=== PATIENT | male | born 1930 | race Caucasian/White ===

== ENCOUNTER 2017-06-04 15:20 | Inpatient (IN) | payer MEDICARE, OTHER, MEDICAID ==
[2017-06-04] MEDS: Dextrose 5%-0.45% NaCl 1,000 ML IV SCH (16:52)
[2017-06-04] MEDS ORDERED: Carboxymethylcellulose Sodium 0.5% Ophth Soln 15 ML Bottle EYEBOTH PRN (17:12)
[2017-06-04] MEDS ORDERED: Acetaminophen 500 MG Tab PO PRN (17:12)
[2017-06-04] MEDS: Ferrous Sulfate 325 MG Tab PO SCH (19:13)
[2017-06-04] MEDS: metFORMIN 500 MG Tab PO SCH (19:13)
[2017-06-04] MEDS: Acetaminophen 500 MG Tab PO SCH (20:52)
[2017-06-04] MEDS: Donepezil 10 MG Tab PO SCH (20:52)
[2017-06-04] MEDS: Tamsulosin 0.4 MG Cap.ER PO SCH (20:52)
[2017-06-04] MEDS: QUEtiapine 100 MG Tab PO SCH (20:54)
[2017-06-05] MEDS: Dextrose 5%-0.45% NaCl 1,000 ML IV SCH (06:12)
[2017-06-05] MEDS: Ferrous Sulfate 325 MG Tab PO SCH (08:04)
[2017-06-05] MEDS: metFORMIN 500 MG Tab PO SCH (08:04)
[2017-06-05] MEDS: Acetaminophen 500 MG Tab PO SCH ×2 (09:00→20:46)
[2017-06-05] MEDS: QUEtiapine 25 MG Tab PO SCH (09:00)
[2017-06-05] MEDS ORDERED: Tamsulosin 0.4 MG Cap.ER PO SCH (09:00)
[2017-06-05] MEDS: Aspirin 81 MG Tab.EC PO SCH (09:00)
[2017-06-05] MEDS ORDERED: Memantine 10 MG Tab PO SCH (09:00)
[2017-06-05] MEDS: Docusate Sodium 100 MG Cap PO SCH (09:00)
[2017-06-05] MEDS: Ascorbic Acid 500 MG Tab PO SCH (09:01)
--- NOTE | 2017-06-05 09:27 | PCM.PN ---
- General Info Date of Service: 06/05/17 Subjective Update: Mr. Hoyt reports no complaints this morning. Admits that he has not been drinking much lately. No other recent changes. No nursing concerns. - Review of Systems General: Denies: Fever Pulmonary: Denies: Shortness of Breath, Cough Cardiovascular: Denies: Chest Pain Gastrointestinal: Denies: Abdominal Pain, Difficulty Swallowing, Nausea, Vomiting Genitourinary: Denies: Dysuria Neurological: Denies: Headache - Patient Data Vitals - Most Recent: Last Vital Signs Temp 36.1 C 06/05/17 06:51 Pulse 63 06/05/17 06:51 Resp 16 06/05/17 06:51 BP 117/64 06/05/17 06:51 Pulse Ox 98 06/05/17 06:51 Weight - Most Recent: 77.593 kg I&O - Last 24 Hours: Intake & Output 06/04/17 06/05/17 06/05/17 22:59 06:59 14:59 Intake Total 170 977 Balance 170 977 Lab Results Last 24 Hours: Laboratory Results - last 24 hr 06/04/17 06/05/17 06/05/17 Range/Units 17:48 06:47 07:05 WBC 5.6 (5.0-10.0) 10^3/uL RBC 2.72 L (4.50-6.00) 10^6/uL Hgb 8.2 L (13.0-17.0) g/dL Hct 25.8 L (40.0-52.0) % MCV 94.8 H (82.0-92.0) fL MCH 30.1 (27.0-31.0) pg MCHC 31.7 L (32.0-36.0) g/dL RDW 12.4 (11.5-14.5) % Plt Count 237 (150-300) 10^3/uL MPV 7.4 (7.4-10.4) fL Neut % (Auto) 62.7 (50.0-70.0) % Lymph % (Auto) 18.5 L (20.0-40.0) % [place] % (Auto) 11.5 H (2.0-8.0) % Eos % (Auto) 6.5 H (1.0-3.0) % Baso % (Auto) 0.8 (0.0-1.0) % Neut # (Auto) 3.6 (2.5-7.0) 10^3/uL Lymph # (Auto) 1.0 (1.0-4.0) 10^3/uL [place] # (Auto) 0.6 (0.1-0.8) 10^3/uL Eos # (Auto) 0.4 H (0.1-0.3) 10^3/uL Baso # (Auto) 0.0 (0.0-0.1) 10^3/uL Sodium (136-145) mmol/L Potassium (3.3-5.3) mmol/L Chloride (98-115) mmol/L Carbon Dioxide (21.0-32.0) mmol/L BUN (6-25) mg/dL Creatinine (0.51-1.17) mg/dL Est Cr Clr Drug Dosing mL/min Estimated GFR (MDRD) mL/min Glucose (70-110) mg/dL POC Glucose 154 H 131 H (74-106) mg/dl Calcium (8.7-10.3) mg/dL Total Bilirubin (0.2-1.0) mg/dL AST (15-37) U/L ALT (12-78) U/L Alkaline Phosphatase (46-116) IU/L Total Protein (6.4-8.2) g/dL Albumin (3.00-4.80) g/dL 06/05/17 Range/Units 07:05 WBC (5.0-10.0) 10^3/uL RBC (4.50-6.00) 10^6/uL Hgb (13.0-17.0) g/dL Hct (40.0-52.0) % MCV (82.0-92.0) fL MCH (27.0-31.0) pg MCHC (32.0-36.0) g/dL RDW (11.5-14.5) % Plt Count (150-300) 10^3/uL MPV (7.4-10.4) fL Neut % (Auto) (50.0-70.0) % Lymph % (Auto) (20.0-40.0) % [place] % (Auto) (2.0-8.0) % Eos % (Auto) (1.0-3.0) % Baso % (Auto) (0.0-1.0) % Neut # (Auto) (2.5-7.0) 10^3/uL Lymph # (Auto) (1.0-4.0) 10^3/uL [place] # (Auto) (0.1-0.8) 10^3/uL Eos # (Auto) (0.1-0.3) 10^3/uL Baso # (Auto) (0.0-0.1) 10^3/uL Sodium 138 (136-145) mmol/L Potassium 4.8 (3.3-5.3) mmol/L Chloride 102 (98-115) mmol/L Carbon Dioxide 26.2 (21.0-32.0) mmol/L BUN 92 H* (6-25) mg/dL Creatinine 3.17 H (0.51-1.17) mg/dL Est Cr Clr Drug Dosing 14.82 mL/min Estimated GFR (MDRD) 19 mL/min Glucose 130 H (70-110) mg/dL POC Glucose (74-106) mg/dl Calcium 8.9 (8.7-10.3) mg/dL Total Bilirubin 0.3 (0.2-1.0) mg/dL AST 9 L (15-37) U/L ALT 17 (12-78) U/L Alkaline Phosphatase 107 (46-116) IU/L Total Protein 6.4 (6.4-8.2) g/dL Albumin 3.26 (3.00-4.80) g/dL Med Orders - Current: Current Medications Acetaminophen (Tylenol Extra Strength) 500 mg PO BID [facility] Last Admin: 06/05/17 09:00 Dose: 500 mg Acetaminophen (Tylenol Extra Strength) 500 mg PO Q6H PRN PRN Reason: Pain Artificial Tears (Refresh Tears 0.5%) 0 ml EYEBOTH TID PRN PRN Reason: Dry Eyes Ascorbic Acid (Vitamin C) 500 mg PO DAILY [facility] Last Admin: 06/05/17 09:01 Dose: 500 mg Aspirin (Halfprin) 81 mg PO DAILY [facility] Last Admin: 06/05/17 09:00 Dose: 81 mg Docusate Sodium (Colace) 100 mg PO DAILY [facility] Last Admin: 06/05/17 09:00 Dose: 100 mg Donepezil HCl (Aricept) 10 mg PO BEDTIME [facility] Last Admin: 06/04/17 20:52 Dose: 10 mg Ferrous Sulfate (Ferrous Sulfate) 325 mg PO BIDMEALS [facility] Last Admin: 06/05/17 08:04 Dose: 325 mg Dextrose/Sodium Chloride (Dextrose 5%-1/2 Ns) 1,000 mls @ 75 mls/hr IV ASDIRECTED [facility] Last Admin: 06/05/17 06:12 Dose: 75 mls/hr Quetiapine Fumarate (Seroquel) 25 mg PO DAILY [facility] Last Admin: 06/05/17 09:00 Dose: 25 mg Quetiapine Fumarate (Seroquel) 150 mg PO BEDTIME [facility] Last Admin: 06/04/17 20:54 Dose: 150 mg Tamsulosin HCl (Flomax) 0.4 mg PO BEDTIME [facility] Last Admin: 06/04/17 20:52 Dose: 0.4 mg Discontinued Medications Memantine (Namenda) 10 mg PO BID [facility] Metformin HCl (Glucophage) 500 mg PO BIDMEALS [facility] Last Admin: 06/05/17 08:04 Dose: 500 mg Omeprazole (Omeprazole) 20 mg PO Q48H [facility] Tamsulosin HCl (Flomax) 0.4 mg PO PCBREAKFAST [facility] - Exam Physical Findings Comments:: GENERAL: Well-appearing elderly white male sitting in bedside chair in no acute distress. HEENT: Normocephalic, atraumatic. Conjunctiva clear,. Nares patent without discharge. Tympanic membranes clear. Mucous membranes mildly dry. NECK: Supple, no masses. CV: Regular rate and rhythm, 1/6 systolic murmur at base without radiation, no rubs or gallops. 2+ radial pulses. PULMONARY: Normal effort, clear to auscultation bilaterally, no wheezes, rales, or rhonchi. ABDOMEN: Positive bowel sounds, soft, nontender, nondistended. EXTREMITIES: No edema, cyanosis, or clubbing. MUSCULOSKELETAL: Moves all extremities well. NEUROLOGICAL: No obvious deficits. DERMATOLOGIC: No rashes or suspicious lesions in exposed areas. PSYCHIATRIC: Alert, interactive, answers questions appropriately. - Problem List Review Problem List Initiated/Reviewed/Updated: Yes - My Orders Last 24 Hours: My Active Orders 06/05/17 09:11 IRON PNL (FE, TIBC, DYAN, %SAT) [REF] Routine 06/05/17 09:12 PROTEIN/CREATININE RATIO URINE Routine 06/06/17 05:11 BASIC METABOLIC PANEL,BMP [CHEM] AM CBC W/O DIFF,HEMOGRAM [HEME] AM - Assessment Assessment:: Mr. Hoyt is an 87yoM with a history notable for vascular dementia for which he is in SNF, HTN with recent hypotension, well-controlled DMT2, and hx prostate cancer admitted 06/04/17 from clinic for acute kidney injury. Hospitalization problems: # Acute kidney injury: Likely due to poor intake and over diuresis on furosemide. UA not collected yet, so will obtain this today along with Uprot:Cr to further assess for etiology. Creatinine without much change at 3.17 today ( 3.04 on admission), but ongoing normal electrolytes. He has had only mild improvement in fluid status having only received 900cc IVF since admission, so will change IVF to NS at 125cc/hr and encourage po intake while monitoring I/O. Will also discontinue other renal-toxic medications which may be playing a role , including metformin, omeprazole, and memantine (of note, started about 5 months ago). Recheck metabolic panel in the morning. If lack of improvement and Uprot:Cr not consistent with pre-renal etiology, consider renal bladder ultrasound next week. # HTN, with recent hypotension: Improvement in BPs and no orthostatic symptoms now that furosemide discontinued and IVF initiation. Continue monitoring. Chronic conditions: # Vascular dementia with behavioral disturbance: Stable. Discontinued memantine given renal-toxic effects; Consider reinitiation when renal function improves. Continue donepezil, quetiapine, and ASA. Ordered melatonin 3mg qHS for delirium prevention while in the hospital. # DMT2: A1c 6.5%. Previously on metformin 850mg BID, which was now discontinued. given renal-toxic effects. Continue BG checks BID. At discharge, recommend metformin 500mg once daily for mortality risk reduction but not further BG lowering given low A1c with goal of 8% given age. # Anemia: Stable at baseline 8-9. Etiology not clear, but favors occult loss ( he has previously declined GI work-up) vs. anemia of chronic disease. Recent B12 and folate normal. No recent iron panel, so ordered. Recheck CBC tomorrow. Continue iron supplementation. # GERD: Stable. Discontinued PPI given renal-toxic effects and recommend initiating H2B in the future if recurrent sx of GERD. # Hx prostate CA: Stable. Continue tamsulosin. Hospitalization details: # FEN: NS @ 125cc/hr. Electrolytes normal. Regular diet. # PPX: Moderate risk for DVT: Heparin 5000un q12h. # Code status: DNR. # Emergency contact: noemi Griffin/BOGDAN. # Disposition: Continue on inpatient. Anticipate discharge back to [facility] following improved in acute conditions.
[2017-06-05] MEDS: Sodium Chloride 0.9% 1,000 ML IV SCH ×2 (10:35→18:39)
[2017-06-05] MEDS: Heparin Sodium 5,000 Units/ML Vial SUBCUT SCH ×2 (11:47→20:46)
[2017-06-05] MEDS: Carboxymethylcellulose Sodium 0.5% Ophth Soln 15 ML Bottle EYEBOTH SCH ×2 (13:57→20:47)
[2017-06-05] MEDS: Donepezil 10 MG Tab PO SCH (20:46)
[2017-06-05] MEDS: Melatonin 3 MG Tab PO SCH (20:46)
[2017-06-05] MEDS: Tamsulosin 0.4 MG Cap.ER PO SCH (20:46)
[2017-06-05] MEDS: QUEtiapine 100 MG Tab PO SCH (20:47)
[2017-06-06] MEDS: Sodium Chloride 0.9% 1,000 ML IV SCH ×3 (02:40→18:42)
[2017-06-06] MEDS ORDERED: Omeprazole 20 MG Cap.CR PO SCH (07:00)
[2017-06-06] MEDS: Aspirin 81 MG Tab.EC PO SCH (08:40)
[2017-06-06] MEDS: Heparin Sodium 5,000 Units/ML Vial SUBCUT SCH ×2 (08:40→20:25)
[2017-06-06] MEDS: Ferrous Sulfate 325 MG Tab PO SCH (08:40)
[2017-06-06] MEDS: Docusate Sodium 100 MG Cap PO SCH (08:40)
[2017-06-06] MEDS: Acetaminophen 500 MG Tab PO SCH ×2 (08:41→20:26)
[2017-06-06] MEDS: Carboxymethylcellulose Sodium 0.5% Ophth Soln 15 ML Bottle EYEBOTH SCH ×3 (08:41→20:26)
[2017-06-06] MEDS: QUEtiapine 25 MG Tab PO SCH (08:41)
[2017-06-06] MEDS: Ascorbic Acid 500 MG Tab PO SCH (08:42)
--- NOTE | 2017-06-06 12:29 | PCM.PN ---
- General Info Date of Service: 06/06/17 Subjective Update: Patient reports that he feels this condition is improving. He has been attempting to increase his fluids. He states that he has had a relatively restful night. He does report that he woke up during the night sporadically and did feel somewhat restless. - Review of Systems General: Denies: Fever Pulmonary: Denies: Shortness of Breath, Cough Cardiovascular: Denies: Chest Pain, Palpitations Gastrointestinal: Denies: Abdominal Pain, Constipation, Nausea, Vomiting Genitourinary: Denies: Frequency, Urgency - Patient Data Vitals - Most Recent: Last Vital Signs Temp 97.3 F 06/06/17 05:41 Pulse 68 06/06/17 05:41 Resp 18 06/06/17 05:41 BP 153/72 H 06/06/17 05:41 Pulse Ox 97 06/06/17 05:41 Weight - Most Recent: 172 lb 9.6 oz I&O - Last 24 Hours: Intake & Output 06/05/17 06/06/17 06/06/17 22:59 06:59 14:59 Intake Total 1404 1197 Output Total 450 Balance 1404 747 Lab Results Last 24 Hours: Laboratory Results - last 24 hr 06/05/17 06/05/17 06/05/17 Range/Units 07:05 09:24 18:18 WBC (5.0-10.0) 10^3/uL RBC (4.50-6.00) 10^6/uL Hgb (13.0-17.0) g/dL Hct (40.0-52.0) % MCV (82.0-92.0) fL MCH (27.0-31.0) pg MCHC (32.0-36.0) g/dL RDW (11.5-14.5) % Plt Count (150-300) 10^3/uL MPV (7.4-10.4) fL Sodium (136-145) mmol/L Potassium (3.3-5.3) mmol/L Chloride (98-115) mmol/L Carbon Dioxide (21.0-32.0) mmol/L BUN (6-25) mg/dL Creatinine (0.51-1.17) mg/dL Est Cr Clr Drug Dosing mL/min Estimated GFR (MDRD) mL/min Glucose (70-110) mg/dL POC Glucose 152 H (74-106) mg/dl Calcium (8.7-10.3) mg/dL Iron 77 (50-150) ug/dL TIBC 272 (261-478) ug/dL Unsaturated IBC 195 (155-355) ug/dL Transferrin % Sat 28.3 (20.0-50.0) % Ferritin 95 (24-336) ng/mL Urine Protein 9 (1-14) mg/dL Urine Creatinine 73 mg/dL Protein/Creat Ratio 24h 123 (0-149) mg/g 06/06/17 06/06/17 Range/Units 07:04 07:04 WBC 4.2 L (5.0-10.0) 10^3/uL RBC 2.85 L (4.50-6.00) 10^6/uL Hgb 8.3 L (13.0-17.0) g/dL Hct 27.1 L (40.0-52.0) % MCV 95.2 H (82.0-92.0) fL MCH 29.0 (27.0-31.0) pg MCHC 30.5 L (32.0-36.0) g/dL RDW 12.3 (11.5-14.5) % Plt Count 234 (150-300) 10^3/uL MPV 7.4 (7.4-10.4) fL Sodium 143 (136-145) mmol/L Potassium 4.9 (3.3-5.3) mmol/L Chloride 109 (98-115) mmol/L Carbon Dioxide 24.4 (21.0-32.0) mmol/L BUN 66 H* (6-25) mg/dL Creatinine 2.02 H (0.51-1.17) mg/dL Est Cr Clr Drug Dosing 23.25 mL/min Estimated GFR (MDRD) 31 mL/min Glucose 114 H (70-110) mg/dL POC Glucose (74-106) mg/dl Calcium 9.1 (8.7-10.3) mg/dL Iron (50-150) ug/dL TIBC (261-478) ug/dL Unsaturated IBC (155-355) ug/dL Transferrin % Sat (20.0-50.0) % Ferritin (24-336) ng/mL Urine Protein (1-14) mg/dL Urine Creatinine mg/dL Protein/Creat Ratio 24h (0-149) mg/g Med Orders - Current: Current Medications Acetaminophen (Tylenol Extra Strength) 500 mg PO BID [facility] Last Admin: 06/06/17 08:41 Dose: 500 mg Acetaminophen (Tylenol Extra Strength) 500 mg PO Q6H PRN PRN Reason: Pain Artificial Tears (Refresh Tears 0.5%) 0 ml EYEBOTH TID [facility] Last Admin: 06/06/17 08:41 Dose: 1 drop Ascorbic Acid (Vitamin C) 500 mg PO DAILY [facility] Last Admin: 06/06/17 08:42 Dose: 500 mg Aspirin (Halfprin) 81 mg PO DAILY [facility] Last Admin: 06/06/17 08:40 Dose: 81 mg Docusate Sodium (Colace) 100 mg PO DAILY [facility] Last Admin: 06/06/17 08:40 Dose: 100 mg Donepezil HCl (Aricept) 10 mg PO BEDTIME [facility] Last Admin: 06/05/17 20:46 Dose: 10 mg Ferrous Sulfate (Ferrous Sulfate) 325 mg PO WITHBREAKFAST [facility] Last Admin: 06/06/17 08:40 Dose: 325 mg Heparin Sodium (Porcine) (Heparin Sodium) 5,000 units SUBCUT BID [facility] Last Admin: 06/06/17 08:40 Dose: 5,000 units Sodium Chloride (Normal Saline) 1,000 mls @ 125 mls/hr IV ASDIRECTED [facility] Last Admin: 06/06/17 10:29 Dose: 125 mls/hr Melatonin (Melatonin) 3 mg PO BEDTIME [facility] Last Admin: 06/05/17 20:46 Dose: 3 mg Quetiapine Fumarate (Seroquel) 25 mg PO DAILY [facility] Last Admin: 06/06/17 08:41 Dose: 25 mg Quetiapine Fumarate (Seroquel) 150 mg PO BEDTIME [facility] Last Admin: 06/05/17 20:47 Dose: 150 mg Tamsulosin HCl (Flomax) 0.4 mg PO BEDTIME [facility] Last Admin: 06/05/17 20:46 Dose: 0.4 mg Discontinued Medications Artificial Tears (Refresh Tears 0.5%) 0 ml EYEBOTH TID PRN PRN Reason: Dry Eyes Ferrous Sulfate (Ferrous Sulfate) 325 mg PO BIDMEALS [facility] Last Admin: 06/05/17 08:04 Dose: 325 mg Dextrose/Sodium Chloride (Dextrose 5%-1/2 Ns) 1,000 mls @ 75 mls/hr IV ASDIRECTED [facility] Last Admin: 06/05/17 06:12 Dose: 75 mls/hr Memantine (Namenda) 10 mg PO BID [facility] Last Admin: 06/05/17 10:00 Dose: Not Given Metformin HCl (Glucophage) 500 mg PO BIDMEALS [facility] Last Admin: 06/05/17 08:04 Dose: 500 mg Omeprazole (Omeprazole) 20 mg PO Q48H [facility] Tamsulosin HCl (Flomax) 0.4 mg PO PCBREAKFAST [facility] - Exam General: Alert, Cooperative, No Acute Distress Lungs: Clear to Auscultation, Normal Respiratory Effort. No: Rales, Rhonchi, Wheezing Cardiovascular: Regular Rate, Murmurs (Systolic murmur) GI/Abdominal Exam: Normal Bowel Sounds, Soft, Non-Tender Extremities: Normal Inspection, Non-Tender, No Pedal Edema Skin: Warm, Dry - Problem List Review Problem List Initiated/Reviewed/Updated: Yes - Assessment Assessment:: Mr. Hoyt is an 87yoM with a history notable for vascular dementia for which he is in SNF, HTN with recent hypotension, well-controlled DMT2, and hx prostate cancer admitted 06/04/17 from clinic for acute kidney injury. Hospitalization problems: # Acute kidney injury: Likely due to poor intake and over diuresis on furosemide. Cr to further assess. Creatinine change at 2.02 today (3.04 on admission), but ongoing normal electrolytes. IV at 125cc/hr and encourage po intake while monitoring I/O. Discontinued other renal-toxic medications which may be playing a role, including metformin, omeprazole, and memantine (of note, started about 5 months ago). Recheck metabolic panel in the morning. # HTN, with recent hypotension: Improvement in BPs and no orthostatic symptoms now that furosemide discontinued and IVF initiation. Continue monitoring. Chronic conditions: # Vascular dementia with behavioral disturbance: Stable. Discontinued memantine given renal-toxic effects; Consider reinitiation when renal function improves. Continue donepezil, quetiapine, and ASA. Ordered melatonin 3mg qHS for delirium prevention while in the hospital. # DMT2: A1c 6.5%. Previously on metformin 850mg BID, which was now discontinued. given renal-toxic effects. Continue BG checks BID. At discharge, recommend metformin 500mg once daily for mortality risk reduction but not further BG lowering given low A1c with goal of 8% given age. # Anemia: Stable at baseline 8-9. Etiology not clear, but favors occult loss ( he has previously declined GI work-up) vs. anemia of chronic disease. Recent B12 and folate normal. No recent iron panel, so ordered. Recheck CBC tomorrow. Continue iron supplementation. # GERD: Stable. Discontinued PPI given renal-toxic effects and recommend initiating H2B in the future if recurrent sx of GERD. # Hx prostate CA: Stable. Continue tamsulosin. Hospitalization details: # FEN: NS @ 125cc/hr. Electrolytes normal. Regular diet. # PPX: Moderate risk for DVT: Heparin 5000un q12h. # Code status: DNR. # Emergency contact: noemi Griffin/BOGDAN. # Disposition: Continue on inpatient. Anticipate discharge back to [facility] following improved in acute conditions.
[2017-06-06] MEDS: Melatonin 3 MG Tab PO SCH (20:25)
[2017-06-06] MEDS: QUEtiapine 100 MG Tab PO SCH (20:25)
[2017-06-06] MEDS: Tamsulosin 0.4 MG Cap.ER PO SCH (20:26)
[2017-06-06] MEDS: Donepezil 10 MG Tab PO SCH (20:26)
[2017-06-07] MEDS: Sodium Chloride 0.9% 1,000 ML IV SCH (02:45)
[2017-06-07] MEDS: Heparin Sodium 5,000 Units/ML Vial SUBCUT SCH ×2 (09:10→21:03)
[2017-06-07] MEDS: Carboxymethylcellulose Sodium 0.5% Ophth Soln 15 ML Bottle EYEBOTH SCH ×3 (09:15→21:03)
[2017-06-07] MEDS: Acetaminophen 500 MG Tab PO SCH ×2 (09:16→21:03)
[2017-06-07] MEDS: Ferrous Sulfate 325 MG Tab PO SCH (09:16)
[2017-06-07] MEDS: Ascorbic Acid 500 MG Tab PO SCH (09:16)
[2017-06-07] MEDS: Aspirin 81 MG Tab.EC PO SCH (09:16)
[2017-06-07] MEDS: QUEtiapine 25 MG Tab PO SCH (09:16)
[2017-06-07] MEDS: Docusate Sodium 100 MG Cap PO SCH (09:16)
--- NOTE | 2017-06-07 10:45 | PCM.PN ---
- General Info Date of Service: 06/07/17 Subjective Update: Patient reports a restful night. Attempts to increase oral fluids but needs encouragement. - Review of Systems General: Denies: Fever, Fatigue HEENT: Denies: Dysphasia, Ear Pain, Headaches, Sore Throat Pulmonary: Denies: Shortness of Breath, Cough Cardiovascular: Denies: Chest Pain, Palpitations Gastrointestinal: Denies: Abdominal Pain, Constipation, Diarrhea Genitourinary: Reports: Incontinence (large frequent voids) Skin: Denies: Dryness, Rash - Patient Data Vitals - Most Recent: Last Vital Signs Temp 98.5 F 06/07/17 06:39 Pulse 68 06/07/17 06:39 Resp 20 06/07/17 06:39 BP 155/80 H 06/07/17 06:39 Pulse Ox 95 06/07/17 06:39 Weight - Most Recent: 177 lb 3 oz I&O - Last 24 Hours: Intake & Output 06/06/17 06/07/17 06/07/17 22:59 06:59 14:59 Intake Total 250 1837 Output Total 80 200 Balance 170 1637 Lab Results Last 24 Hours: Laboratory Results - last 24 hr 06/06/17 06/07/17 Range/Units 17:47 07:06 Sodium 146 H (136-145) mmol/L Potassium 4.7 (3.3-5.3) mmol/L Chloride 112 (98-115) mmol/L Carbon Dioxide 24.2 (21.0-32.0) mmol/L BUN 38 H (6-25) mg/dL Creatinine 1.50 H (0.51-1.17) mg/dL Est Cr Clr Drug Dosing 31.31 mL/min Estimated GFR (MDRD) 44 mL/min Glucose 113 H (70-110) mg/dL POC Glucose 116 H (74-106) mg/dl Calcium 9.3 (8.7-10.3) mg/dL Med Orders - Current: Current Medications Acetaminophen (Tylenol Extra Strength) 500 mg PO BID [facility] Last Admin: 06/07/17 09:16 Dose: 500 mg Acetaminophen (Tylenol Extra Strength) 500 mg PO Q6H PRN PRN Reason: Pain Artificial Tears (Refresh Tears 0.5%) 0 ml EYEBOTH TID [facility] Last Admin: 06/07/17 09:15 Dose: 1 drop Ascorbic Acid (Vitamin C) 500 mg PO DAILY [facility] Last Admin: 06/07/17 09:16 Dose: 500 mg Aspirin (Halfprin) 81 mg PO DAILY [facility] Last Admin: 06/07/17 09:16 Dose: 81 mg Docusate Sodium (Colace) 100 mg PO DAILY [facility] Last Admin: 06/07/17 09:16 Dose: 100 mg Donepezil HCl (Aricept) 10 mg PO BEDTIME [facility] Last Admin: 06/06/17 20:26 Dose: 10 mg Ferrous Sulfate (Ferrous Sulfate) 325 mg PO WITHBREAKFAST [facility] Last Admin: 06/07/17 09:16 Dose: 325 mg Heparin Sodium (Porcine) (Heparin Sodium) 5,000 units SUBCUT BID [facility] Last Admin: 06/07/17 09:10 Dose: 5,000 units Melatonin (Melatonin) 3 mg PO BEDTIME [facility] Last Admin: 06/06/17 20:25 Dose: 3 mg Quetiapine Fumarate (Seroquel) 25 mg PO DAILY [facility] Last Admin: 06/07/17 09:16 Dose: 25 mg Quetiapine Fumarate (Seroquel) 150 mg PO BEDTIME [facility] Last Admin: 06/06/17 20:25 Dose: 150 mg Tamsulosin HCl (Flomax) 0.4 mg PO BEDTIME [facility] Last Admin: 06/06/17 20:26 Dose: 0.4 mg Discontinued Medications Artificial Tears (Refresh Tears 0.5%) 0 ml EYEBOTH TID PRN PRN Reason: Dry Eyes Ferrous Sulfate (Ferrous Sulfate) 325 mg PO BIDMEALS [facility] Last Admin: 06/05/17 08:04 Dose: 325 mg Dextrose/Sodium Chloride (Dextrose 5%-1/2 Ns) 1,000 mls @ 75 mls/hr IV ASDIRECTED [facility] Last Admin: 06/05/17 06:12 Dose: 75 mls/hr Sodium Chloride (Normal Saline) 1,000 mls @ 125 mls/hr IV ASDIRECTED [facility] Last Admin: 06/07/17 02:45 Dose: 125 mls/hr Memantine (Namenda) 10 mg PO BID [facility] Last Admin: 06/05/17 10:00 Dose: Not Given Metformin HCl (Glucophage) 500 mg PO BIDMEALS [facility] Last Admin: 06/05/17 08:04 Dose: 500 mg Omeprazole (Omeprazole) 20 mg PO Q48H [facility] Tamsulosin HCl (Flomax) 0.4 mg PO PCBREAKFAST [facility] - Exam General: Alert, Cooperative, No Acute Distress Lungs: Clear to Auscultation. No: Crackles, Rales, Rhonchi, Wheezing Cardiovascular: Regular Rate, Regular Rhythm, No Murmurs GI/Abdominal Exam: Normal Bowel Sounds, Soft, Non-Tender Skin: Warm, Dry - Problem List Review Problem List Initiated/Reviewed/Updated: Yes - My Orders Last 24 Hours: My Active Orders 06/07/17 10:20 Communication Order [RC] DAILY 06/08/17 05:11 BMP [BASIC METABOLIC PANEL,BMP] [CHEM] Routine - Assessment Assessment:: Mr. Hoyt is an 87yoM with a history notable for vascular dementia for which he is in SNF, HTN with recent hypotension, well-controlled DMT2, and hx prostate cancer admitted 06/04/17 from clinic for acute kidney injury. Hospitalization problems: # Acute kidney injury: Likely due to poor intake and over diuresis on furosemide. (Patient has had 5 pound weight gain since admit. LS remain CTA and no SOB/lower extremity edema.) Cr to further assess. Creatinine change at 1.5 today (3.04 on admission), but ongoing normal electrolytes. IV discontinued today and Saline lock with flushes per protocol. Encourage po intake while monitoring I/O and weights. Increase activity level. Discontinued other renal- toxic medications on admit which may have played a role, including metformin, ( blood sugars stable) omeprazole, and memantine (of note, started about 5 months ago). Recheck metabolic panel in the morning. Discussed case with Dr. Ramos Gaspar MD. Agrees with plan of care. # HTN, with recent hypotension: Improvement in BPs and no orthostatic symptoms. Continue monitoring. Chronic conditions: # Vascular dementia with behavioral disturbance: Stable. Discontinued memantine given renal-toxic effects; Consider reinitiation when renal function improves. Continue donepezil, quetiapine, and ASA. Ordered melatonin 3mg qHS for delirium prevention while in the hospital. # DMT2: A1c 6.5%. Previously on metformin 850mg BID, which was now discontinued. given renal-toxic effects. Continue BG checks BID. At discharge, recommend metformin 500mg once daily for mortality risk reduction but not further BG lowering given low A1c with goal of 8% given age. # Anemia: Stable at baseline 8-9. Etiology not clear, but favors occult loss ( he has previously declined GI work-up) vs. anemia of chronic disease. Recent B12 and folate normal. No recent iron panel, so ordered. Recheck CBC tomorrow. Continue iron supplementation. # GERD: Stable. Discontinued PPI given renal-toxic effects and recommend initiating H2B in the future if recurrent sx of GERD. # Hx prostate CA: Stable. Continue tamsulosin. Hospitalization details: # FEN: NS @ 125cc/hr. Electrolytes normal. Regular diet. # PPX: Moderate risk for DVT: Heparin 5000un q12h. # Code status: DNR. # Emergency contact: noemi Griffin/BOGDAN. # Disposition: Continue on inpatient. Anticipate discharge back to [facility] following improved in acute conditions.
[2017-06-07] MEDS: Tamsulosin 0.4 MG Cap.ER PO SCH (21:03)
[2017-06-07] MEDS: Donepezil 10 MG Tab PO SCH (21:03)
[2017-06-07] MEDS: QUEtiapine 100 MG Tab PO SCH (21:03)
[2017-06-07] MEDS: Melatonin 3 MG Tab PO SCH (21:03)
[2017-06-08 05:51] VITALS: BP 167/84
[2017-06-08] MEDS: Aspirin 81 MG Tab.EC PO SCH (08:07)
[2017-06-08] MEDS: Ferrous Sulfate 325 MG Tab PO SCH (08:07)
[2017-06-08] MEDS: Docusate Sodium 100 MG Cap PO SCH (08:07)
[2017-06-08] MEDS: Ascorbic Acid 500 MG Tab PO SCH (08:07)
[2017-06-08] MEDS: QUEtiapine 25 MG Tab PO SCH (08:07)
[2017-06-08] MEDS: Acetaminophen 500 MG Tab PO SCH (08:08)
[2017-06-08] MEDS: Carboxymethylcellulose Sodium 0.5% Ophth Soln 15 ML Bottle EYEBOTH SCH (08:08)
[2017-06-08] MEDS: Heparin Sodium 5,000 Units/ML Vial SUBCUT SCH (09:33)
--- NOTE | 2017-06-08 11:13 | PCM.DCSUM1 ---
Discharge Summary - Hospital Course Free Text/Narrative:: Mr. Hoyt is an 87yoM with a history notable for vascular dementia for which he is in SNF, HTN with recent hypotension, well-controlled DMT2, and hx prostate cancer admitted 06/04/17 from clinic for acute kidney injury. He had excellent improvement in kidney function and clinical status and deemed ready for discharge back to [facility]. He will follow-up on long-term rounds next week. Follow-up items underlined below in problem-based hospitalization summary: # Acute kidney injury: Creatinine initially 3.04, improved to 1.37 on day of discharge. Likely due to poor intake and overdiuresis on furosemide in addition to possible contribution of renal-toxic medications. Therapy included IVF initially with encouragement of po intake and discontinuation of renal-toxic medications, including metformin, omeprazole, and memantine, during hospitalization. Recheck of renal function in 1 week. # HTN, with recent hypotension: Improvement in BPs with treatment for SANDRA, as above. Chronic conditions: # Vascular dementia with behavioral disturbance: Stable. Discontinued memantine during hospitalization given renal-toxic effects; resume at discharge. Continued donepezil, quetiapine, and ASA. Ordered melatonin 3mg qHS for delirium prevention while in the hospital. # DMT2: A1c 6.5%. Previously on metformin 850mg BID, which was discontinued during hospitalization given renal-toxic effects; resume at 500mg po daily for mortality risk reduction but not further BG lowering given low A1c with goal of 8% given age. # Anemia: Stable at baseline 8-9. Etiology not clear but work-up consistent with anemia of chronic disease vs. occult loss (he has previously declined GI work-up) with iron panel during hospitalization with low-end normal iron. Continue iron supplementation. # GERD: Stable. Discontinued PPI given renal-toxic effects and recommend initiating H2B in the future if recurrent sx of GERD. # Hx prostate CA: Stable. Continued tamsulosin. - Discharge Data Discharge Date: 06/08/17 Discharge Disposition: DC/Tfer to SNF 03 Condition: Good - Discharge Diagnosis/Problem(s) (1) Acute kidney injury SNOMED Code(s): 01348138 ICD Code: N17.9 - ACUTE KIDNEY FAILURE, UNSPECIFIED Status: Acute - Patient Instructions Diet: Regular Diet as Tolerated Fluid Restriction: Encourage fluid intake Activity: As Tolerated Showering/Bathing: May Shower Notify Provider of: Fever, Increased Pain - Discharge Plan Home Medications: Home Meds Tamsulosin [Flomax] 0.4 mg PO PCBREAKFAST 01/24/16 [History] Acetaminophen [Tylenol Extra Strength] 500 mg PO BID 06/04/17 [History] Acetaminophen [Tylenol Extra Strength] 500 mg PO Q6HR PRN 06/04/17 [History] Ascorbic Acid [Vitamin C] 500 mg PO DAILY 06/04/17 [History] Aspirin [Halfprin] 81 mg PO DAILY 06/04/17 [History] Bisacodyl [Dulcolax] 10 mg RECTAL Q3D PRN 06/04/17 [History] Cholecalciferol (Vitamin D3) [Vitamin D3] 2,000 unit PO DAILY 06/04/17 [History] Docusate Sodium [Colace] 100 mg PO DAILY 06/04/17 [History] Donepezil [Aricept] 10 mg PO BEDTIME 06/04/17 [History] Ferrous Sulfate 325 mg PO BID 06/04/17 [History] Memantine HCl [Namenda Xr] 28 mg PO DAILY 06/04/17 [History] QUEtiapine [SEROquel] 25 mg PO DAILY 06/04/17 [History] QUEtiapine [SEROquel] 150 mg PO DAILY 06/04/17 [History] Docusate Sodium [Stool Softener] 100 mg PO DAILY PRN 06/05/17 [History] Refresh Plus Ophth Soln 1 drop EYEBOTH TID@0700,1300,2000 06/05/17 [History] metFORMIN [Glucophage] 500 mg PO DAILY #30 tab 06/08/17 [Rx] - Discharge Summary/Plan Comment DC Time >30 min.: Yes - General Info Subjective Update: Mr. Hoyt reports feeling well today. He has been improving with po intake since stopping IVF. No nursing concerns. - Patient Data Vitals - Most Recent: Last Vital Signs Temp 36.5 C 06/08/17 05:50 Pulse 63 06/08/17 05:50 Resp 18 06/08/17 05:50 BP 167/84 H 06/08/17 05:50 Pulse Ox 96 06/08/17 07:00 Weight - Most Recent: 77.564 kg I&O - Last 24 hours: Intake & Output 06/07/17 06/08/17 06/08/17 22:59 06:59 14:59 Intake Total 100 50 Output Total 300 Balance 100 -250 Lab Results - Last 24 hrs: Laboratory Results - last 24 hr 06/07/17 06/08/17 Range/Units 17:56 07:20 Sodium 144 (136-145) mmol/L Potassium 4.9 (3.3-5.3) mmol/L Chloride 109 (98-115) mmol/L Carbon Dioxide 24.0 (21.0-32.0) mmol/L BUN 24 (6-25) mg/dL Creatinine 1.37 H (0.51-1.17) mg/dL Est Cr Clr Drug Dosing 34.28 mL/min Estimated GFR (MDRD) 49 mL/min Glucose 117 H (70-110) mg/dL POC Glucose 95 (74-106) mg/dl Calcium 9.5 (8.7-10.3) mg/dL MALICK Results - Last 24 hrs: Microbiology 06/07/17 13:05 Stool Occult Blood (MALICK) - Final Stool / Feces Med Orders - Current: Current Medications Acetaminophen (Tylenol Extra Strength) 500 mg PO BID [facility] Last Admin: 06/08/17 08:08 Dose: 500 mg Acetaminophen (Tylenol Extra Strength) 500 mg PO Q6H PRN PRN Reason: Pain Artificial Tears (Refresh Tears 0.5%) 0 ml EYEBOTH TID [facility] Last Admin: 06/08/17 08:08 Dose: 1 drop Ascorbic Acid (Vitamin C) 500 mg PO DAILY [facility] Last Admin: 06/08/17 08:07 Dose: 500 mg Aspirin (Halfprin) 81 mg PO DAILY [facility] Last Admin: 06/08/17 08:07 Dose: 81 mg Docusate Sodium (Colace) 100 mg PO DAILY [facility] Last Admin: 06/08/17 08:07 Dose: 100 mg Donepezil HCl (Aricept) 10 mg PO BEDTIME [facility] Last Admin: 06/07/17 21:03 Dose: 10 mg Ferrous Sulfate (Ferrous Sulfate) 325 mg PO WITHBREAKFAST [facility] Last Admin: 06/08/17 08:07 Dose: 325 mg Heparin Sodium (Porcine) (Heparin Sodium) 5,000 units SUBCUT BID [facility] Last Admin: 06/08/17 09:33 Dose: Not Given Melatonin (Melatonin) 3 mg PO BEDTIME [facility] Last Admin: 06/07/17 21:03 Dose: 3 mg Quetiapine Fumarate (Seroquel) 25 mg PO DAILY [facility] Last Admin: 06/08/17 08:07 Dose: 25 mg Quetiapine Fumarate (Seroquel) 150 mg PO BEDTIME [facility] Last Admin: 06/07/17 21:03 Dose: 150 mg Tamsulosin HCl (Flomax) 0.4 mg PO BEDTIME [facility] Last Admin: 06/07/17 21:03 Dose: 0.4 mg Discontinued Medications Artificial Tears (Refresh Tears 0.5%) 0 ml EYEBOTH TID PRN PRN Reason: Dry Eyes Ferrous Sulfate (Ferrous Sulfate) 325 mg PO BIDMEALS [facility] Last Admin: 06/05/17 08:04 Dose: 325 mg Dextrose/Sodium Chloride (Dextrose 5%-1/2 Ns) 1,000 mls @ 75 mls/hr IV ASDIRECTED [facility] Last Admin: 06/05/17 06:12 Dose: 75 mls/hr Sodium Chloride (Normal Saline) 1,000 mls @ 125 mls/hr IV ASDIRECTED [facility] Last Admin: 06/07/17 02:45 Dose: 125 mls/hr Memantine (Namenda) 10 mg PO BID [facility] Last Admin: 06/05/17 10:00 Dose: Not Given Metformin HCl (Glucophage) 500 mg PO BIDMEALS [facility] Last Admin: 06/05/17 08:04 Dose: 500 mg Omeprazole (Omeprazole) 20 mg PO Q48H [facility] Tamsulosin HCl (Flomax) 0.4 mg PO PCBREAKFAST [facility] - Exam Physical Findings Comments:: GENERAL: Well-appearing elderly white male sitting in bedside chair in no acute distress. HEENT: Normocephalic, atraumatic. Conjunctiva clear. Mucous membranes moist. NECK: Supple, no masses. CV: Regular rate and rhythm, 1/6 systolic murmur at base without radiation, no rubs or gallops. 2+ radial pulses. PULMONARY: Normal effort, clear to auscultation bilaterally, no wheezes, rales, or rhonchi. ABDOMEN: Positive bowel sounds, soft, nontender, nondistended. EXTREMITIES: No edema, cyanosis, or clubbing. MUSCULOSKELETAL: Moves all extremities well. NEUROLOGICAL: No obvious deficits. DERMATOLOGIC: No rashes or suspicious lesions in exposed areas. PSYCHIATRIC: Alert, interactive, answers questions appropriately. *Q Meaningful Use (DIS) - VTE *Q VTE Criteria *Q: - Stroke *Q Stroke Criteria *Q: - AMI *Q AMI Criteria *Q:
== END 2017-06-08 11:40 | DRG 684 ==
LOC: KA.MS 15:20 → OBSVTOIN 06-05 16:07
PROVIDERS: ADMIT Family Medicine; ATTEND Family Medicine
DX: N17.9 Acute kidney failure, unspecified (principal); I95.9 Hypotension, unspecified; R53.1 Weakness; I10 Essential (primary) hypertension; E86.0 Dehydration; D64.9 Anemia, unspecified; E78.00 Pure hypercholesterolemia, unspecified; E11.9 Type 2 diabetes mellitus without complications; F03.90 Unspecified dementia, unspecified severity, without behavioral disturbance, psychotic disturbance, mood disturbance, and anxiety; K21.9 Gastro-esophageal reflux disease without esophagitis; Z88.8 Allergy status to other drugs, medicaments and biological substances; Z85.46 Personal history of malignant neoplasm of prostate; Z87.891 Personal history of nicotine dependence; Z79.899 Other long term (current) drug therapy
CPT/HCPCS: 36415; 71020; 80053; 81003; 82570; 82728; 82962 ×2; 83540; 83550; 84156; 85025; A9270 ×13; J1644; J7030; J7042 ×2; 80048; 82272; 85027; 96372; G0378; G0379

== ENCOUNTER 2017-11-29 15:59 | Emergency (ER) | payer MEDICARE, OTHER, MEDICAID ==
[2017-11-29 16:17] VITALS: BP 135/75
--- NOTE | 2017-11-29 17:34 | EDM.PDOC ---
ED HPI GENERAL MEDICAL PROBLEM - General Chief Complaint: General Stated Complaint: THROWING UP BLOOD??? Time Seen by Provider: 11/29/17 16:57 Source of Information: Reports: Retirement Records History Limitations: Reports: Other (dementia) - History of Present Illness INITIAL COMMENTS - FREE TEXT/NARRATIVE: Patient brought from [place] with report of bloody emesis today. No one came with him and no sample available. Patient is pleasant with moderate dementia and doesn't really know why he is here but is very comfortable and denies any pain. - Related Data Allergies Allergy/AdvReac Type Severity Reaction Status Date / Time amoxicillin Allergy Rash Verified 11/29/17 16:18 doxycycline Allergy Rash Verified 11/29/17 16:18 Home Meds: Home Meds Tamsulosin [Flomax] 0.4 mg PO DAILY 01/24/16 [History] Acetaminophen [Tylenol Extra Strength] 500 mg PO BID 06/04/17 [History] Acetaminophen [Tylenol Extra Strength] 500 mg PO Q6HR PRN 06/04/17 [History] Ascorbic Acid [Vitamin C] 500 mg PO DAILY 06/04/17 [History] Aspirin [Halfprin] 81 mg PO DAILY 06/04/17 [History] Cholecalciferol (Vitamin D3) [Vitamin D3] 2,000 unit PO DAILY 06/04/17 [History] Docusate Sodium [Colace] 100 mg PO BID 06/04/17 [History] Donepezil [Aricept] 10 mg PO BEDTIME 06/04/17 [History] Ferrous Sulfate 325 mg PO BID 06/04/17 [History] Memantine HCl [Namenda Xr] 14 mg PO DAILY 06/04/17 [History] QUEtiapine [SEROquel] 25 mg PO DAILY 06/04/17 [History] QUEtiapine [SEROquel] 125 mg PO DAILY 06/04/17 [History] Refresh Plus Ophth Soln 1 drop EYEBOTH TID@0700,1300,2000 06/05/17 [History] Dulaglutide [Trulicity] 1.5 mg SQ Q7D 11/29/17 [History] Melatonin 3 mg PO BEDTIME 11/29/17 [History] Omeprazole 20 mg PO DAILY 11/29/17 [History] Sennosides/Docusate Sodium [Senna S Tablet] 1 each PO BID 11/29/17 [History] Simethicone [Gas Relief] 80 mg PO QIDPCANDBED PRN 11/29/17 [History] metFORMIN [Glucophage] 1,000 mg PO BID 11/29/17 [History] Past Medical History HEENT History: Reports: Impaired Vision Cardiovascular History: Reports: None Respiratory History: Reports: None Gastrointestinal History: Reports: None Genitourinary History: Reports: Urinary Incontinence, Other (See Below) Other Genitourinary History: urinary frequency Musculoskeletal History: Reports: None Neurological History: Reports: Other (See Below) Other Neuro History: dementia Psychiatric History: Reports: Aggressive/Hostile Behaviors, Dementia, Hallucinations, Mood Swings Endocrine/Metabolic History: Reports: Diabetes, Type II Hematologic History: Reports: None Immunologic History: Reports: None Oncologic (Cancer) History: Reports: None Dermatologic History: Reports: None - Infectious Disease History Infectious Disease History: Reports: None - Past Surgical History Male Surgical History: Reports: Prostatectomy Neurological Surgical History: Reports: None Social & Family History - Family History Family Medical History: Noncontributory - Tobacco Use Smoking Status *Q: Former Smoker Years of Tobacco use: 25 Packs/Tins Daily: 1 Used Tobacco, but Quit: Yes Month/Year Tobacco Last Used: 20 years Second Hand Smoke Exposure: No - Caffeine Use Caffeine Use: Reports: Coffee, Soda - Alcohol Use Days Per Week of Alcohol Use: 4 Number of Drinks Per Day: 1 Total Drinks Per Week: 4 - Recreational Drug Use Recreational Drug Use: No - Living Situation & Occupation Living situation: Reports: Occupation: Employed ED ROS GENERAL - Review of Systems Review Of Systems: See Below Constitutional: Denies: Fever, Chills, Malaise, Weakness, Diaphoresis, Decreased Appetite HEENT: Denies: Ear Pain, Throat Pain, Vision Change Respiratory: Denies: Shortness of Breath, Cough Cardiovascular: Denies: Chest Pain, Lightheadedness, Syncope Endocrine: Denies: Fatigue GI/Abdominal: Reports: Vomiting (one large episode today). Denies: Abdominal Pain, Constipation, Diarrhea, Nausea : Denies: Dysuria, Flank Pain, Frequency Musculoskeletal: Reports: No Symptoms Skin: Denies: Cyanosis, Jaundice, Mottled, Pallor, Diaphoresis Neurological: Denies: Headache, Seizure, Syncope, Trouble Speaking Psychiatric: Denies: Agitation, Anxiety Hematologic/Lymphatic: Reports: Anemia (has had anemia in recent years but doing better lately, per brother who came in later) ED EXAM, GENERAL - Physical Exam Exam: See Below Exam Limited By: No Limitations General Appearance: Alert, WD/WN, No Apparent Distress Eye Exam: Bilateral Eye: EOMI, Normal Inspection, PERRL Ears: Normal External Exam, Hearing Grossly Normal Nose: Normal Inspection, No Blood Throat/Mouth: Normal Inspection, Normal Lips, Normal Voice, No Airway Compromise Head: Atraumatic, Normocephalic Neck: Normal Inspection, Full Range of Motion Respiratory/Chest: No Respiratory Distress, Lungs Clear, Normal Breath Sounds, No Accessory Muscle Use Cardiovascular: Regular Rate, Rhythm, No Murmur GI/Abdominal: Normal Bowel Sounds, Soft, Non-Tender Back Exam: No: CVA Tenderness (L), CVA Tenderness (R) Extremities: Normal Inspection, Normal Range of Motion Neurological: Alert, Oriented (quite well; knows family, surroundings but obvious dementia with specific recent details), No Motor/Sensory Deficits Psychiatric: Normal Affect, Normal Mood Skin Exam: Warm, Dry, Intact, Normal Color, No Rash Course - Vital Signs Last Recorded V/S: Last Vital Signs Temp 98.2 F 11/29/17 16:13 Pulse 87 11/29/17 16:13 Resp 20 11/29/17 16:13 BP 135/75 11/29/17 16:13 Pulse Ox 96 11/29/17 16:13 - Orders/Labs/Meds Labs: Laboratory Tests 11/29/17 11/29/17 Range/Units 17:00 17:00 WBC 10.6 H (5.0-10.0) 10^3/uL RBC 4.03 L (4.50-6.00) 10^6/uL Hgb 11.9 L D (13.0-17.0) g/dL Hct 36.9 L (40.0-52.0) % MCV 91.7 D (82.0-92.0) fL MCH 29.6 (27.0-31.0) pg MCHC 32.3 (32.0-36.0) g/dL RDW 12.7 (11.5-14.5) % Plt Count 340 H D (150-300) 10^3/uL MPV 7.1 L (7.4-10.4) fL Neut % (Auto) 83.9 H (50.0-70.0) % Lymph % (Auto) 8.4 L (20.0-40.0) % Banks % (Auto) 6.0 (2.0-8.0) % Eos % (Auto) 1.0 (1.0-3.0) % Baso % (Auto) 0.7 (0.0-1.0) % Neut # (Auto) 8.9 H (2.5-7.0) 10^3/uL Lymph # (Auto) 0.9 L (1.0-4.0) 10^3/uL Banks # (Auto) 0.6 (0.1-0.8) 10^3/uL Eos # (Auto) 0.1 (0.1-0.3) 10^3/uL Baso # (Auto) 0.1 (0.0-0.1) 10^3/uL Sodium 141 (136-145) mmol/L Potassium 4.9 (3.3-5.3) mmol/L Chloride 101 (98-115) mmol/L Carbon Dioxide 26.1 (21.0-32.0) mmol/L BUN 22 (6-25) mg/dL Creatinine 1.27 H (0.51-1.17) mg/dL Est Cr Clr Drug Dosing 36.98 mL/min Estimated GFR (MDRD) 54 mL/min Glucose 147 H (70-110) mg/dL Calcium 9.5 (8.7-10.3) mg/dL - Re-Assessments/Exams Free Text/Narrative Re-Assessment/Exam: 11/29/17 17:37 Hemoglobin is 11.9 which is the best on our record for him in the last 4 years. We have no emesis sample for testing and since hemoglobin is okay won't do stool hemoccult today. WBC is 10.6 which is likely due to the episode of vomiting with no fever, pain, cough or other sign of infection. Discussed findings with patient and his brother and [id number]. Patient remained stable throughout ER course and is discharged back to [place] with close follow up with PCP. Departure - Departure Time of Disposition: 17:34 Disposition: DC/Tfer to [facility] 03 Condition: Good Clinical Impression: Hematemesis without nausea - Discharge Information Referrals: Rylie Gaspar MD [Primary Care Provider] - Forms: ED Department Discharge Additional Instructions: 1. Continue with medications as previously. 2. Follow up with PCP in 2-3 days for recheck of hemoglobin. If significant blood in vomit or stool persists recheck sooner.
== END 2017-11-29 17:40 ==
LOC: KA.ED 15:59
DX: K92.0 Hematemesis (principal); E11.9 Type 2 diabetes mellitus without complications; Z88.1 Allergy status to other antibiotic agents; Z79.82 Long term (current) use of aspirin; Z79.899 Other long term (current) drug therapy; Z79.84 Long term (current) use of oral hypoglycemic drugs; Z87.891 Personal history of nicotine dependence
CPT/HCPCS: 36415; 80048; 85025; 99283; 99284

== ENCOUNTER 2018-10-15 19:31 | Emergency (ER) | payer MEDICARE, MEDICAID ==
[2018-10-15] MEDS ORDERED: Acetaminophen 500 MG Tab PO ONE (20:18)
--- NOTE | 2018-10-15 20:25 | EDM.PDOC ---
ED HPI GENERAL MEDICAL PROBLEM - General Chief Complaint: Fever Stated Complaint: FEVER, CONJESTED Time Seen by Provider: 10/15/18 20:00 Source of Information: Reports: Patient, RN History Limitations: Reports: Altered Mental Status - History of Present Illness INITIAL COMMENTS - FREE TEXT/NARRATIVE: 88-year-old male is brought in by EMS from [facility] for evaluation of a fever. Patient was given Tylenol at 4:30 this afternoon. He's been having a cough and runny nose. He reports some congestion. He denies any chest pain, nausea vomiting, abdominal pain. He is a very poor historian. Upon arrival his temperature was 100.8. Lung sounds although were diminished there was no crackles, wheezing or rhonchi throughout. Onset: Today - Related Data Allergies Allergy/AdvReac Type Severity Reaction Status Date / Time amoxicillin Allergy Rash Verified 10/15/18 20:00 doxycycline Allergy Rash Verified 10/15/18 20:00 Home Meds: Home Meds Tamsulosin [Flomax] 0.4 mg PO DAILY 01/24/16 [History] Acetaminophen [Tylenol Extra Strength] 500 mg PO BID 06/04/17 [History] Acetaminophen [Tylenol Extra Strength] 500 mg PO Q6HR PRN 06/04/17 [History] Ascorbic Acid [Vitamin C] 500 mg PO Q48H 06/04/17 [History] Aspirin [Halfprin] 81 mg PO DAILY 06/04/17 [History] Cholecalciferol (Vitamin D3) [Vitamin D3] 2,000 unit PO DAILY 06/04/17 [History] Docusate Sodium [Colace] 100 mg PO BID 06/04/17 [History] Donepezil [Aricept] 10 mg PO BEDTIME 06/04/17 [History] Ferrous Sulfate 325 mg PO BID 06/04/17 [History] Memantine HCl [Namenda Xr] 28 mg PO DAILY 06/04/17 [History] QUEtiapine [SEROquel] 25 mg PO DAILY 06/04/17 [History] QUEtiapine [SEROquel] 125 mg PO 2100 06/04/17 [History] Refresh Plus Ophth Soln 1 drop EYEBOTH TID@0700,1300,2000 06/05/17 [History] Dulaglutide [Trulicity] 1.5 mg SQ Q7D 11/29/17 [History] Melatonin 3 mg PO BEDTIME 11/29/17 [History] Omeprazole 20 mg PO DAILY 11/29/17 [History] Sennosides/Docusate Sodium [Senna S Tablet] 1 each PO BID 11/29/17 [History] Simethicone [Gas Relief] 80 mg PO QIDPCANDBED PRN 11/29/17 [History] metFORMIN [Glucophage] 500 mg PO 2100 11/29/17 [History] Past Medical History HEENT History: Reports: Impaired Vision Cardiovascular History: Reports: None Respiratory History: Reports: None Gastrointestinal History: Reports: None Genitourinary History: Reports: Urinary Incontinence, Other (See Below) Other Genitourinary History: urinary frequency Musculoskeletal History: Reports: None Neurological History: Reports: Other (See Below) Other Neuro History: dementia Psychiatric History: Reports: Aggressive/Hostile Behaviors, Dementia, Hallucinations, Mood Swings Endocrine/Metabolic History: Reports: Diabetes, Type II Hematologic History: Reports: None Immunologic History: Reports: None Oncologic (Cancer) History: Reports: None Dermatologic History: Reports: None - Infectious Disease History Infectious Disease History: Reports: None - Past Surgical History Male Surgical History: Reports: Prostatectomy Neurological Surgical History: Reports: None Social & Family History - Family History Family Medical History: Noncontributory - Caffeine Use Caffeine Use: Reports: Coffee, Soda - Living Situation & Occupation Living situation: Reports: Occupation: Employed ED ROS GENERAL - Review of Systems Review Of Systems: ROS reveals no pertinent complaints other than HPI. ED EXAM, GENERAL - Physical Exam Exam: See Below Exam Limited By: Altered Mental Status General Appearance: Alert, WD/WN, No Apparent Distress Eye Exam: Bilateral Eye: EOMI Ears: Other (Obstruction of the TMs due to cerumen impaction bilaterally) Nose: Normal Inspection, Nasal Drainage, Clear Rhinorrhea Throat/Mouth: Normal Inspection, Normal Lips, Normal Oropharynx, Normal Voice, No Airway Compromise Head: Atraumatic Neck: Normal Inspection, Supple. No: Lymphadenopathy (L), Lymphadenopathy (R) Respiratory/Chest: Lungs Clear, Decreased Breath Sounds. No: Crackles, Wheezing Cardiovascular: Regular Rate, Rhythm GI/Abdominal: Normal Bowel Sounds, Soft, Non-Tender Back Exam: Normal Inspection, Full Range of Motion Neurological: Alert, No Motor/Sensory Deficits Psychiatric: Normal Affect, Normal Mood Skin Exam: Warm Lymphatic: No Adenopathy Course - Vital Signs Last Recorded V/S: Last Vital Signs Temp 100.8 F H 10/15/18 20:30 Pulse 90 10/15/18 19:31 Resp 20 10/15/18 19:31 BP 130/70 10/15/18 19:31 Pulse Ox 96 10/15/18 19:31 - Orders/Labs/Meds Orders: Active Orders 24 hr Category Date Time Status Chest 1V Frontal [CR] Stat Exams 10/15/18 19:57 Taken Labs: Laboratory Tests 10/15/18 10/15/18 Range/Units 08:00 08:00 WBC 7.24 (5.00-10.00) 10^3/uL RBC 3.12 L (4.50-6.00) 10^6/uL Hgb 10.3 L (13.0-17.0) g/dL Hct 30.4 L (40.0-52.0) % MCV 97.4 H D (82.0-92.0) fL MCH 33.0 H (27.0-31.0) pg MCHC 33.9 (32.0-36.0) g/dL RDW 12.2 (11.5-14.5) % Plt Count 247 (150-400) 10^3/uL MPV 9.1 (7.4-10.4) fL Immature Gran % (Auto) 0.3 (0.0-5.0) % Neut % (Auto) 83.5 H (50.0-70.0) % Lymph % (Auto) 4.6 L (20.0-40.0) % [place] % (Auto) 10.2 H (2.0-8.0) % Eos % (Auto) 1.0 (1.0-3.0) % Baso % (Auto) 0.4 (0.0-1.0) % Immature Gran # (Auto) 0.02 (0.00-0.50) 10^3/uL Neut # (Auto) 6.05 (2.50-7.00) 10^3/uL Lymph # (Auto) 0.33 L (1.00-4.00) 10^3/uL [place] # (Auto) 0.74 (0.10-0.80) 10^3/uL Eos # (Auto) 0.07 L (0.10-0.30) 10^3/uL Baso # (Auto) 0.03 (0.00-0.10) 10^3/uL Sodium 144 (136-145) mmol/L Potassium 5.2 (3.3-5.3) mmol/L Chloride 103 (98-115) mmol/L Carbon Dioxide 23.7 (21.0-32.0) mmol/L Anion Gap 22.5 H (5-15) mmol/L BUN 17 (6-25) mg/dL Creatinine 1.20 H (0.51-1.17) mg/dL Est Cr Clr Drug Dosing TNP Estimated GFR (MDRD) 57 mL/min Glucose 172 H (75 - 99) mg/dL Calcium 9.2 (8.7-10.3) mg/dL Meds: Medications Discontinued Medications Generic Name Dose Route Start Last Admin Trade Name Freq PRN Reason Stop Dose Admin Acetaminophen 1,000 mg 10/15/18 20:18 10/15/18 20:30 Tylenol Extra Strength PO 10/15/18 20:19 1,000 mg ONETIME ONE Administration Oseltamivir Phosphate Confirm 10/15/18 20:51 Tamiflu Administered 10/15/18 20:52 Dose 75 mg .ROUTE .STK-MED ONE - Radiology Interpretation Free Text/Narrative:: Chest x-ray single view with comparison to prior x-ray from 06/04/2007 Findings: -Heart size is in the upper limits of normal. There is no consolidation. No pleural effusions are seen Impression: -no consolidation Departure - Departure Time of Disposition: 20:52 Disposition: [facility] Condition: Fair Clinical Impression: Influenza A - Discharge Information Instructions: Influenza, Adult, [id number] Referrals: Rylie Gaspar MD [Primary Care Provider] - Forms: ED Department Discharge Additional Instructions: 1. Tamiflu 2. Tylenol for fevers 3. Hydration 4. Patient will return back to the intermediate - My Orders Last 24 Hours: My Active Orders 10/15/18 19:57 Chest 1V Frontal [CR] Stat - Assessment/Plan Last 24 Hours: My Active Orders 10/15/18 19:57 Chest 1V Frontal [CR] Stat Assessment:: Influenza A Plan: 1. Tamiflu 2. Tylenol for fevers 3. Hydration 4. Patient will return back to the intermediate
[2018-10-15 20:28] LABS: ANION GAP 22.5 mmol/L (5-15); CHLORIDE,CL 103 mmol/L (98-115); SODIUM,NA 144 mmol/L (136-145)
[2018-10-15 20:43] VITALS: BP 130/70
[2018-10-15] MEDS ORDERED: Oseltamivir 75 MG Cap PO ONE (20:43)
[2018-10-15] MEDS ORDERED: Oseltamivir 75 MG Cap ONE (20:51)
--- NOTE | 2018-10-16 10:44 | CR ---
[id number] RAD/RAD Chest PA or AP 1V EXAM: FRONTAL CHEST INDICATION: Fever. COMPARISON: June 04, 2017. DISCUSSION: Mild cardiomegaly with borderline central vascular congestion. No infiltrates are identified. Tortuous thoracic aorta. IMPRESSION: 1. Borderline central vascular congestion. 2. No acute infiltrates. Livan Dang MD 10/16/18 1043 Thank you for allowing us to participate in the care of your patient.
== END 2018-10-15 21:15 ==
LOC: KA.ED 19:31
DX: J10.1 Influenza due to other identified influenza virus with other respiratory manifestations (principal); E11.9 Type 2 diabetes mellitus without complications; Z79.82 Long term (current) use of aspirin; Z79.84 Long term (current) use of oral hypoglycemic drugs; Z79.899 Other long term (current) drug therapy; Z88.1 Allergy status to other antibiotic agents
CPT/HCPCS: 36415; 71045; 80048; 85025; 87804; 99284; 99285; A9270-GY